=== PATIENT | female | born 1975 | race Caucasian/White ===

== ENCOUNTER → 2017-06-03 | Outpatient (CLI) | payer MEDICARE, OTHER ==
--- NOTE | 2017-06-04 14:04 | RAD ---
DATE: 06/03/2017 EXAM: DIGITAL SCREEN BILAT W/CAD HISTORY: Routine screening COMPARISON: 05/28/2016 This study was interpreted with the benefit of Computerized Aided Detection (CAD). The breast parenchyma shows scattered fibroglandular densities. Breast parenchyma level B. FINDINGS: There is a persistent asymmetrical opacity upper inner left breast. It is unchanged since 05/28/2016. 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 There is an additional small smooth 6 mm nodule in the lateral aspect of left breast as seen on the cc view which is also unchanged. No new or enlarging breast opacities are seen. Minimal benign type calcifications are present. No suspicious microcalcifications have developed. IMPRESSION: Stable mammograms without evidence of malignancy. BI-RADS CATEGORY: 2 BENIGN FINDING(S) RECOMMENDED FOLLOW-UP: 12M 12 MONTH FOLLOW-UP PQRS compliance statement: Patient information was entered into a reminder system with a target due date for the next mammogram. Mammography is a sensitive method for finding small breast cancers, but it does not detect them all and is not a substitute for careful clinical examination. A negative mammogram does not negate a clinically suspicious finding and should not result in delay in biopsying a clinically suspicious abnormality. "Our facility is accredited by the [employer] Mammography [employer]."
== END | disposition home or self-care (01) ==
LOC: MAMMO 14:05
PROVIDERS: ATTEND Nurse Practitioner Family
DX: Z12.31 Encounter for screening mammogram for malignant neoplasm of breast (principal)
CPT/HCPCS: G0202; 77067

== ENCOUNTER → 2017-08-02 | Outpatient (CLI) | payer MEDICARE, OTHER ==
--- NOTE | 2017-08-02 15:42 | RAD ---
Indication right foot pain. Soft tissue infection. AP oblique and lateral views of the right foot were obtained. There is some soft tissue swelling. Soft tissue swelling is most pronounced at the base of the fifth metatarsal laterally. There is suspect bony demineralization. An acute bony finding is not seen. There is no plain film findings to suggest osteomyelitis. IMPRESSION: No acute finding. No plain film findings to suggest osteomyelitis
== END | disposition home or self-care (01) ==
LOC: DXRADRC 15:22
PROVIDERS: ATTEND Physician Assistant
DX: M25.774 Osteophyte, right foot (principal); M79.89 Other specified soft tissue disorders
CPT/HCPCS: 73630

== ENCOUNTER → 2018-06-04 | Outpatient (CLI) | payer MEDICARE, OTHER ==
--- NOTE | 2018-06-04 15:27 | RAD ---
DATE: 06/04/2018 EXAM: MAMMO KM SCREENING BILATERAL HISTORY: Routine screening COMPARISON: 06/03/2017 This study was interpreted with the benefit of Computerized Aided Detection (CAD). The breast parenchyma shows scattered fibroglandular densities. Breast parenchyma level B. FINDINGS: 2-D and 3-D tomosynthesis imaging was performed in CC and MLO projections. A 20 x 12 mm oval-shaped nodule in the medial aspect of the left breast is unchanged. A 6 mm smooth nodule in the lateral aspect of the left breast also appears unchanged. No new or enlarging breast densities are seen. There is minimal benign type calcification. No suspicious microcalcifications have developed. IMPRESSION: 1. Stable left breast nodules. 2. No mammographic evidence of malignancy in either breast. BI-RADS CATEGORY: 2 BENIGN FINDING(S) RECOMMENDED FOLLOW-UP: 12M 12 MONTH FOLLOW-UP PQRS compliance statement: Patient information was entered into a reminder system with a target due date for the next mammogram. Mammography is a sensitive method for finding small breast cancers, but it does not detect them all and is not a substitute for careful clinical examination. A negative mammogram does not negate a clinically suspicious finding and should not result in delay in biopsying a clinically suspicious abnormality. "Our facility is accredited by the [employer] Mammography [employer]."
== END | disposition home or self-care (01) ==
LOC: MAMMO 13:09
PROVIDERS: ATTEND Physician Assistant
DX: Z12.31 Encounter for screening mammogram for malignant neoplasm of breast (principal)
CPT/HCPCS: 77063; 77067

== ENCOUNTER → 2019-07-06 | Outpatient (CLI) | payer MEDICARE, OTHER ==
--- NOTE | 2019-07-10 17:00 | RAD ---
BILATERAL SCREENING MAMMOGRAM, 3-D History: Routine screening. Comparison: 05/28/2016, 06/03/2017, and 06/04/2018 mammographic exams. Technique: MLO and CC digital tomosynthesis (3D) images obtained. Radiologist reviewed these images on dedicated workstation. Findings: Breast Tissue Density B : There are scattered areas of fibroglandular density. There are no dominant masses, suspicious microcalcifications, or architectural distortion. Small masses involving the left breast have remained stable. IMPRESSION: No mammographic evidence of malignancy. Recommend routine screening. BI-RADS category 1: Negative. The images were reviewed with computer-aided detection. Patient information is entered into reminder system with a target due date for the next screening mammogram. Mammography is the most sensitive method for finding small breast cancers, but it does not detect them all and is not a substitute for careful clinical examination. A negative mammogram does not negate a clinically suspicious finding and should not result in delay in biopsying a clinically suspicious abnormality. "Our facility is accredited by the [employer] Mammography [employer]." Electronically signed by: John Rodriguez MD (07/10/2019 4:57 PM) [facility]
== END | disposition home or self-care (01) ==
LOC: MAMMO 09:44
PROVIDERS: ATTEND Physician Assistant
DX: Z12.31 Encounter for screening mammogram for malignant neoplasm of breast (principal); N63.20 Unspecified lump in the left breast, unspecified quadrant
CPT/HCPCS: 77063; 77067

== ENCOUNTER → 2019-08-04 | Outpatient (CLI) | payer MEDICARE, OTHER ==
--- NOTE | 2019-08-04 15:52 | RAD ---
EXAM: Left shoulder, 3 views. HISTORY: Pain. COMPARISON: None. FINDINGS: 3 views of left shoulder obtained. There is no fracture, dislocation or subluxation. There is artifact overlying the humeral diaphysis in a single projection. IMPRESSION: No acute osseous finding. Electronically signed by: Mari Reese MD (08/04/2019 3:49 PM) [facility]
== END | disposition home or self-care (01) ==
LOC: DXRAD 14:07
PROVIDERS: ATTEND Physician Assistant
DX: M25.512 Pain in left shoulder (principal)
CPT/HCPCS: 73030

== ENCOUNTER → 2020-01-25 | Outpatient (CLI) | payer MEDICARE, OTHER ==
--- NOTE | 2020-01-25 12:38 | RAD ---
EXAM: Left shoulder, 3 views. HISTORY: Pain. COMPARISON: 08/04/2019. FINDINGS: 3 views of the left shoulder obtained. There is no fracture, dislocation or subluxation. IMPRESSION: No acute osseous finding. Electronically signed by: Mari Reese MD (01/25/2020 12:35 PM) [id number]
== END ==
LOC: RAD 10:59
PROVIDERS: ATTEND Orthopaedic Surgery Sports Medicine
DX: M25.512 Pain in left shoulder (principal)
CPT/HCPCS: 73030

== ENCOUNTER → 2020-08-05 | Outpatient (CLI) | payer MEDICARE, OTHER ==
--- NOTE | 2020-08-05 17:04 | RAD ---
BILATERAL SCREENING MAMMOGRAM, 3-D History: Routine screening. Comparison: 07/06/2019, 06/04/2018, 06/03/2017, 05/28/2016, 03/29/2015. Technique: MLO and CC digital tomosynthesis (3D) images obtained. Radiologist reviewed these images on dedicated workstation. Findings: Breast Tissue Density B : There are scattered areas of fibroglandular density. There are no dominant masses, suspicious microcalcifications, or architectural distortion. IMPRESSION: No mammographic evidence of malignancy. Recommend routine screening. BI-RADS category 1: Negative. The images were reviewed with computer-aided detection. Patient information is entered into reminder system with a target due date for the next screening mammogram. Mammography is the most sensitive method for finding small breast cancers, but it does not detect them all and is not a substitute for careful clinical examination. A negative mammogram does not negate a clinically suspicious finding and should not result in delay in biopsying a clinically suspicious abnormality. "Our facility is accredited by the [employer] Mammography Program." Electronically signed by: John Rodriguez MD (08/05/2020 5:01 PM) [facility]
== END | disposition home or self-care (01) ==
LOC: MAMMO 12:50
DX: Z12.31 Encounter for screening mammogram for malignant neoplasm of breast (principal)
CPT/HCPCS: 77063; 77067

== ENCOUNTER → 2020-10-11 | Outpatient (CLI) | payer MEDICARE, OTHER ==
--- NOTE | 2020-10-11 17:14 | RAD ---
Right ankle 3 views INDICATION: Right ankle pain and injury one month ago. COMPARISON: Right foot x-rays of 08/02/2017. FINDINGS: 3 views of the right ankle show inversion of the right ankle with lateral subluxation of the talar dome relative to the tibial plafond. This could be positional. There is circumferential soft tissue swelling of the right ankle also present. IMPRESSION: No acute fracture or aggressive appearing osseous lesion but inversion of the right ankle is present. This could be positional. Recommend correlation with the clinical exam. Electronically signed by: Kenton Luevano MD (10/11/2020 5:11 PM) [id number]
== END ==
LOC: RAD 15:32
PROVIDERS: ATTEND Physician Assistant
DX: M25.571 Pain in right ankle and joints of right foot (principal)
CPT/HCPCS: 73610

== ENCOUNTER 2021-11-30 11:54 | Emergency (ER) | payer MEDICARE, OTHER ==
[~2021-11-30] VITALS: Ht 170.2 cm; Wt 86.0 kg
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
[2021-11-30 13:27] LABS: BASO # 0.1 x10^3/uL (0.0-0.2); BASO % 1 % (0-3); EOS % 1 % (0-3); HEMOGLOBIN 15.8 g/dL (12.0-15.5); LYMPH # 1.7 x10^3/uL (1.0-4.8); LYMPH % 25 % (24-48); MEAN CORPUSCULAR HEMOGLOBIN 31 pg (25-35); MEAN CORPUSCULAR HGB CONC 34 g/dL (31-37); MEAN CORPUSCULAR VOLUME 91 fL (79-100); MONO # 0.5 x10^3/uL (0.0-1.1); MONO % 8 % (0-9); NEUT # 4.3 x10^3uL (1.8-7.7); NEUT % 65 % (31-73); PLATELET COUNT 238 x10^3/uL (140-400); RED BLOOD COUNT 5.18 x10^6/uL (3.50-5.40); RED CELL DISTRIBUTION WIDTH 12.5 % (11.5-14.5); WHITE BLOOD COUNT 6.6 x10^3/uL (4.0-11.0)
[2021-11-30 13:36] LABS: ALBUMIN 3.3 g/dL (3.4-5.0); ALBUMIN/GLOBULIN RATIO 0.9 (1.0-1.7); CALCIUM 9.3 mg/dL (8.5-10.1); CREATININE 0.9 mg/dL (0.6-1.0); GFR 67.1; POTASSIUM 3.4 mmol/L (3.5-5.1); TOTAL BILIRUBIN 0.7 mg/dL (0.2-1.0)
[2021-11-30 13:39] LABS: ACETAMIN < 2.0 mcg/mL (10-30); SALIC 0.3 mg/dL (2.8-20.0)
[2021-11-30 16:18] LABS: INFLUENZA A PATIENT NEGATIVE (NEGATIVE); INFLUENZA B PATIENT NEGATIVE (NEGATIVE)
[2021-11-30 16:52] LABS: BARBITURATES NEG (NEG); BENZODIAZEPINES NEG (NEG); CANNABINOIDS NEG (NEG); COCAINE NEG (NEG); METHADONE NEG (NEG); OPIATES NEG (NEG); PHENCYCLIDINE NEG (NEG)
[2021-11-30 16:57] LABS: AMPHETAMINE/METHAMPHETAMINE NEG (NEG)
[2021-11-30 17:01] LABS: BACTERIA,URINE 0 /HPF (0-FEW); BILIRUBIN,URINE NEG (NEG); CLARITY,URINE CLEAR; COLOR,URINE YELLOW; GLUCOSE,URINE NEG (NEG); NITRITE,URINE NEG (NEG); RBC,URINE 0 /HPF (0-2); SQUAMOUS EPITHELIAL CELL,UR OCC /LPF; UROBILINOGEN,URINE 0.2 mg/dL (0.2 mg/dL); WBC,URINE 0 /HPF (0-4)
[2021-11-30] MEDS ORDERED: HALOPERIDOL LACT 5 MG/ML VIAL. IM ONE ×2 (19:15→21:00)
[2021-11-30] MEDS ORDERED: MIDAZOLAM HCL PF 5 MG/5 ML VIAL. IM ONE ×3 (19:15→22:15)
[2021-11-30] MEDS ORDERED: IV RINGERS SOLUTION,LACTATED 1,000 ML IV ONE (20:00)
--- NOTE | 2021-12-01 00:56 | EKG ---
[address] [address] Test Date: 2021-12-01 Test Time: 00:06:16 Pat Name: JENNIFER ZAMORA Department: Room: Gender: F Games Manager: : 1975 Requested By: BENNETT IVEY Order Number: [id number] Reading MD: Denilson Hester MD Measurements Intervals [place] Rate: 80 P: 56 IN: 162 QRS: 14 QRSD: 84 T: 41 QT: 388 QTc: 451 Interpretive Statements SINUS RHYTHM Electronically Signed On 12-04-2021 9:35:29 [employer] by Denilson Hester MD
[2021-12-01] MEDS ORDERED: OLANZapine ZYDIS 15 MG TAB.RAPDIS PO ONE (11:30)
[2021-12-01] MEDS ORDERED: LORazepam 1 MG TABLET PO ONE ×3 (12:00→23:30)
[2021-12-01] MEDS ORDERED: HALOPERIDOL LACT 5 MG/ML VIAL. IM ONE (21:00)
[2021-12-01] MEDS ORDERED: ZIPRASIDONE IM 20 MG VIAL. IM ONE (23:30)
[2021-12-03] MEDS ORDERED: LORazepam 1 MG TABLET PO ONE (17:00)
[2021-12-03] MEDS ORDERED: OLANZapine IM 10 MG VIAL. IM ONE (17:00)
[2021-12-04] MEDS ORDERED: LORazepam 1 MG TABLET PO ONE (14:00)
[2021-12-04] MEDS ORDERED: OLANZapine IM 10 MG VIAL. IM ONE ×2 (14:00→22:30)
[2021-12-04] MEDS ORDERED: LORazepam 1 MG TABLET ONE (22:29)
[2021-12-04] MEDS ORDERED: diphenhydrAMINE HCL 25 MG CAPSULE PO ONE (22:29)
[2021-12-04] MEDS ORDERED: LORazepam 1 MG TABLET PO PRN (22:30)
[2021-12-04] MEDS ORDERED: diphenhydrAMINE HCL 25 MG CAPSULE PO PRN (22:30)
[2021-12-05] MEDS ORDERED: ARIPiprazole 10 MG TABLET PO SCH (09:00)
[2021-12-05] MEDS ORDERED: LORazepam 1 MG TABLET PO ONE ×2 (17:00)
[2021-12-05 19:07] VITALS: BP 124/70
[2021-12-05] MEDS ORDERED: MIDAZOLAM HCL PF 5 MG/5 ML VIAL. IM ONE (23:30)
[2021-12-06] MEDS ORDERED: LORazepam 1 MG TABLET PO ONE (18:00)
== END 2021-12-06 18:50 ==
LOC: ER 11:54
DX: F31.9 Bipolar disorder, unspecified (principal); Z20.822 Contact with and (suspected) exposure to COVID-19
CPT/HCPCS: 36415; 80053; 80307; 80329; 81001; 84484; 84702; 85025; 87428; 93005; 96360; 96361; 96372; 99285; J1630; J2060; J2250; J7120; G0480

== ENCOUNTER 2021-12-25 11:53 | Emergency (ER) | payer MEDICARE, OTHER ==
[~2021-12-25] VITALS: Ht 170.2 cm; Wt 86.0 kg
[2021-12-25 12:44] LABS: INFLUENZA A PATIENT NEGATIVE (NEGATIVE); INFLUENZA B PATIENT NEGATIVE (NEGATIVE)
[2021-12-25 12:54] LABS: BACTERIA,URINE 0 /HPF (0-FEW); CLARITY,URINE CLEAR; COLOR,URINE YELLOW; GLUCOSE,URINE NEG (NEG); NITRITE,URINE NEG (NEG); RBC,URINE 0 /HPF (0-2); SQUAMOUS EPITHELIAL CELL,UR FEW /LPF; UROBILINOGEN,URINE 0.2 mg/dL (0.2 mg/dL); WBC,URINE 0 /HPF (0-4)
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
[2021-12-25 13:23] LABS: AMPHETAMINE/METHAMPHETAMINE NEG (NEG); BARBITURATES NEG (NEG); BENZODIAZEPINES NEG (NEG); CANNABINOIDS NEG (NEG); COCAINE NEG (NEG); METHADONE NEG (NEG); OPIATES NEG (NEG); PHENCYCLIDINE NEG (NEG)
[2021-12-25 13:24] LABS: BASO # 0.1 x10^3/uL (0.0-0.2); BASO % 1 % (0-3); EOS % 0 % (0-3); HEMATOCRIT 41.4 % (36.0-47.0); HEMOGLOBIN 13.6 g/dL (12.0-15.5); LYMPH # 1.4 x10^3/uL (1.0-4.8); LYMPH % 22 % (24-48); MEAN CORPUSCULAR HEMOGLOBIN 30 pg (25-35); MEAN CORPUSCULAR HGB CONC 33 g/dL (31-37); MEAN CORPUSCULAR VOLUME 92 fL (79-100); MONO # 0.8 x10^3/uL (0.0-1.1); MONO % 12 % (0-9); NEUT # 4.1 x10^3uL (1.8-7.7); NEUT % 65 % (31-73); PLATELET COUNT 243 x10^3/uL (140-400); RED BLOOD COUNT 4.52 x10^6/uL (3.50-5.40); RED CELL DISTRIBUTION WIDTH 13.3 % (11.5-14.5); WHITE BLOOD COUNT 6.3 x10^3/uL (4.0-11.0)
[2021-12-25 13:34] LABS: CALCIUM 9.3 mg/dL (8.5-10.1); CREATININE 0.8 mg/dL (0.6-1.0); GFR 76.9; POTASSIUM 3.6 mmol/L (3.5-5.1)
[2021-12-25 13:42] LABS: ACETAMIN < 2.0 mcg/mL (10-30); ETHANOL < 10 mg/dL (0-10); SALIC 0.5 mg/dL (2.8-20.0)
[2021-12-26] MEDS ORDERED: diphenhydrAMINE HCL 25 MG CAPSULE PO ONE (01:30)
[2021-12-26] MEDS ORDERED: ACETAMINOPHEN 500 MG TABLET PO ONE (01:30)
[2021-12-26] MEDS ORDERED: OLANZapine 2.5 MG TABLET PO ONE (01:30)
--- NOTE | 2021-12-26 08:53 | EKG ---
[address] [address] Test Date: 2021-12-26 Test Time: 08:46:55 Pat Name: JENNIFER ZAMORA Department: Room: Gender: F Bilingual Legal Assistant: GAVIN : 1975 Requested By: ELMO HOOKER Order Number: [id number] Reading MD: [place] Boyd Measurements Intervals [place] Rate: 90 P: 49 LA: 152 QRS: -6 QRSD: 96 T: 35 QT: 378 QTc: 467 Interpretive Statements SINUS RHYTHM LEFTWARD AXIS Electronically Signed On 12-26-2021 19:24:43 ONCOLOGY SOCIAL WORK by [place] Boyd
[2021-12-26 13:01] VITALS: BP 133/75
== END 2021-12-26 13:34 ==
LOC: ER 11:53
DX: F20.9 Schizophrenia, unspecified (principal); F41.9 Anxiety disorder, unspecified; F22 Delusional disorders; F31.9 Bipolar disorder, unspecified; Z20.822 Contact with and (suspected) exposure to COVID-19; Z91.19 Patient's noncompliance with other medical treatment and regimen; Z88.0 Allergy status to penicillin
CPT/HCPCS: 80048; 80307; 80329; 81001; 85025; 87428; 93005; 99285; G0480; Q0163; U0003